=== PATIENT | male | born 1990 | race Hispanic/Latino ===

== ENCOUNTER 2024-04-25 00:17 | Emergency (ER) | payer OTHER ==
[~2024-04-25] VITALS: Ht 185.4 cm; Wt 154.2 kg
[2024-04-25 00:20] VITALS: TEMP 98.2
[2024-04-25 00:57] VITALS: PULSE 75; RESP 18
[2024-04-25 01:02] LABS: BASOPHILS % 0.3 % (0.0-1.0); EOSINOPHILS # (AUTO) 0.1 (0.0-0.4); EOSINOPHILS % 0.9 % (0.0-6.0); HEMATOCRIT 45.9 % (38.2-49.6); HEMOGLOBIN 15.1 g/dL (14.0-18.0); LYMPHOCYTES # (AUTO) 1.9 (1.0-3.2); LYMPHOCYTES % 14.5 % (18.0-39.1); MEAN CORPUSCULAR HEMOGLOBIN 30.8 pg (28-32); MEAN CORPUSCULAR HGB CONC 32.9 g/dL (31-35); MEAN CORPUSCULAR VOLUME 93.5 fL (81-99); MONOCYTES # (AUTO) 0.5 (0.2-0.8); MONOCYTES % 3.6 % (4.4-11.3); NEUTROPHILS # (AUTO) 10.3 (2.1-6.9); NEUTROPHILS % 80.4 % (38.7-80.0); PLATELET COUNT 286 x10e3/uL (140-360); RED BLOOD COUNT 4.91 x10e6/uL (4.3-5.7); RED CELL DISTRIBUTION WIDTH 12.5 % (11.7-14.4); WHITE BLOOD COUNT 12.77 x10e3/uL (4.8-10.8)
[2024-04-25 01:23] LABS: ALBUMIN 3.8 g/dL (3.5-5.0); ALBUMIN/GLOBULIN RATIO 1.1 (0.8-2.0); ANION GAP 15.5 mmol/L (8-16); BILIRUBIN,TOTAL 1.1 mg/dL (0.2-1.2); CALCIUM 9.1 mg/dL (8.4-10.2); CREATININE, SERUM 0.74 mg/dL (0.72-1.25); POTASSIUM 3.5 mmol/L (3.5-5.1); TOTAL PROTEIN 7.3 g/dL (6.5-8.1)
[2024-04-25] MEDS ORDERED: ONDANSETRON HCL INJ 2MG/ML 2ML 2 MG/ML VIAL IV STA (02:06)
[2024-04-25] MEDS ORDERED: HYDROXYZINE HCL25 MG PO (02:15)
[2024-04-25] MEDS ORDERED: ONDANSETRON ODT4 MG SL (02:15)
[2024-04-25] MEDS: ONDANSETRON HCL INJ 2MG/ML 2ML 2 MG/ML VIAL IV STA (02:19)
[2024-04-25 03:00] VITALS: BP 134/87; PULSE 74; RESP 19; TEMP 98.1; O2SAT 98
== END 2024-04-25 02:53 | disposition home or self-care (01) ==
LOC: ER 00:53
DX: R07.89 Other chest pain (principal); R11.0 Nausea; F41.9 Anxiety disorder, unspecified; R94.31 Abnormal electrocardiogram [ECG] [EKG]
CPT/HCPCS: 36415; 71045; 80053; 84484; 85025; 93005; 99283; J2405

== ENCOUNTER 2024-04-25 12:25 | Emergency (ER) | payer OTHER ==
[~2024-04-25] VITALS: Ht 185.4 cm; Wt 154.2 kg
[~2024-04-25 12:25] MED LIST: HYDROXYZINE HCL25 MG PO; ONDANSETRON ODT4 MG SL
[2024-04-25 12:30] VITALS: PULSE 98; RESP 18; TEMP 97.9; O2SAT 100
== END 2024-04-25 13:20 | disposition home or self-care (01) ==
LOC: ER 12:30
DX: F41.9 Anxiety disorder, unspecified (principal); F12.90 Cannabis use, unspecified, uncomplicated
CPT/HCPCS: 99282

== ENCOUNTER 2024-04-27 13:24 | Emergency (ER) | payer OTHER ==
[~2024-04-27] VITALS: Ht 185.4 cm; Wt 154.2 kg
[2024-04-27] MEDS: LORAZEPAM 0.5 MG TAB PO ONE (14:29)
[2024-04-27] MEDS ORDERED: IOPAMIDOL 370 MG/ML 100 ML INFUS..BTL INJ ONE (15:02)
[2024-04-27] MEDS ORDERED: SODIUM CHLORIDE 0.9% 100 ML ONE (15:02)
[2024-04-27] MEDS ORDERED: ATIVAN1 MG PO (17:28)
[2024-04-27 17:47] VITALS: PULSE 87; RESP 18; TEMP 98.3; O2SAT 99
== END 2024-04-27 18:01 | disposition home or self-care (01) ==
LOC: FSED 13:51
DX: R00.2 Palpitations (principal); F41.9 Anxiety disorder, unspecified; K76.0 Fatty (change of) liver, not elsewhere classified
CPT/HCPCS: 70450; 71275; 93005; 99284; J7050; Q9967